=== PATIENT | male | born 2000 | race Caucasian/White ===

== ENCOUNTER 2023-01-15 12:51 | Emergency (ER) | payer MEDICAID, OTHER ==
[~2023-01-15] VITALS: Ht 172.7 cm; Wt 72.6 kg
[2023-01-15 12:55] VITALS: BP_SYST 129
--- NOTE | 2023-01-15 13:00 | NUR ---
Placed in room 04 . Placed on cardiac specialist, blood pressure machine and pulse oximeter. To gown for exam. Side rails up. Report given to JAMIE MONROY.
--- NOTE | 2023-01-15 14:00 | NUR ---
Patient seen by Dr. Rolle; patient had injury repaired by the doctor at this time.
--- NOTE | 2023-01-15 14:30 | NUR ---
Patient given written and verbal discharge instructions and verbalizes understanding. ER MD discussed with patient the results and treatment provided. Patient in stable condition. ID arm band removed. Rx not given. Patient educated on pain management and to follow up with PMD. Pain Scale 0/10. Opportunity for questions provided and answered. Medication side effect fact sheet provided.
== END 2023-01-15 14:30 | disposition home or self-care (01) ==
LOC: SED 12:51
DX: S61.431A Puncture wound without foreign body of right hand, initial encounter (principal); Z79.899 Other long term (current) drug therapy; W60.XXXA Contact with nonvenomous plant thorns and spines and sharp leaves, initial encounter; Y93.89 Activity, other specified; Y92.89 Other specified places as the place of occurrence of the external cause; Y99.8 Other external cause status
CPT/HCPCS: 99282